=== PATIENT | female | born 1990 | race Caucasian/White ===

== ENCOUNTER → 2018-04-28 16:08 | Outpatient (CLI) | payer BC, SELFPAY ==
[2016-12-02 05:19] VITALS: BMI 29.5
[2018-04-28 18:33] LABS: Absolute Lymphocyte Count 2.78 X10^3/ul (0.83-4.51); Absolute Neutrophil Count 2.1 X10^3/uL (2.0-7.7); Basophil# 0.03 X10^3/uL; Basophil% 0.5 % (0-1); Eosinophils% 5.4 % (0-5); Hematocrit 40.2 % (37-47); Hemoglobin 12.6 g/dl (12.0-15.0); Lymphocyte # 2.78 X10^3/ul (4.0); Lymphocyte % 49.8 % (19-41); Mean Corp Hgb Conc 31.3 g/gl (32-36); Mean Corpuscular Hgb 27.2 pg (27.0-32.0); Mean Corpuscular Volume 86.8 fL (81-99); Mean Platelet Vol. 9.4 fl (6.2-12.0); Monocyte# 0.34 X10^3/uL; Monocyte% 6.1 % (0-10); Neutrophil # 2.13 X10^3/uL (2.7-7.7); Neutrophil % 38.2 % (47-70); Platelet Count 278 K/mm3 (150-450); RBC Distribution Width CV 13.3 % (11.6-14.6); RBC Distribution Width SD 41.9 fl (35.1-43.9); Red Blood Count 4.63 M/mm3 (4.2-5.4); White Blood Count 5.6 K/mm3 (4.4-11.0)
[2018-04-28 18:37] LABS: POSITIVE COUNT NO; POSITIVE DIFFERENTIAL NO; POSITIVE MORPHOLOGY NO
[2018-04-28 19:09] LABS: Thyroid Stim Hormone (TSH) 0.86 uIU/mL (0.358-3.74)
--- OUTSIDE RECORDS SUMMARY | 2018-06-14 23:25 | XMS RPT_ITS ---
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, single Hospital episode, Repository unspecified / F32.9(ICD-10) PROCEDURES PROCEDURES No Procedure Records FoundRESULTS RESULTS CBC W/DIFF, AUTOMATED Collected: 04/28/2018 Status: F Source: OG 4:09 PM [facility] REPOSITORY TYPE CODE TESTS RESULT OUT OF RANGE REFERENCE UNITS LAB L100.1000 4.4-11.0 K/mm3 Normal WBC 5.6 LAB L100.1200 4.2-5.4 M/mm3 Normal RBC 4.63 LAB L100.1300 12.0-15.0 g/dl Normal HGB 12.6 LAB L100.1400 37-47 % Normal HCT 40.2 LAB L100.1500 81-99 fL Normal MCV 86.8 LAB L100.1600 27.0-32.0 pg Normal MCH 27.2 LAB L100.1700 32-36 g/gl Low MCHC 31.3 LAB L100.1810 11.6-14.6 % Normal RDW CV 13.3 LAB L100.1820 35.1-43.9 fl Normal RDW SD 41.9 LAB L100.1900 150-450 K/mm3 Normal PLT 278 LAB L100.2000 6.2-12.0 fl Normal MPV 9.4 LAB L100.2100 47-70 % Low NEUT% 38.2 LAB L100.2200 19-41 % High LY% 49.8 LAB L100.2300 0-10 % Normal MONO% 6.1 LAB L100.2400 0-5 % High EO% 5.4 LAB L100.2500 0-1 % Normal BASO% 0.5 LAB L100.2550 0.0-0.9 % Normal IM GRAN % 0.000 Result Comment: IG% - Immature Granulocytes (promyelocytes, myelocytes and metamyelocytes) > 1% indicates that a LEFT SHIFT is Present. LAB L100.2620 2.0-7.7 X10 3/uL Normal Absolute Neut 2.1 LAB L100.2720 0.83-4.51 X10 3/ul Normal Absolute Lymph 2.78 Performed By: #### L100.0100, L501.9520 #### [facility] [address] [place], [address] THYROID STIM HORMONE Collected: 04/28/2018 Status: F Source: [place] ([facility]) 4:09 PM [facility] REPOSITORY TYPE CODE TESTS RESULT OUT OF RANGE REFERENCE UNITS LAB L501.9520 0.358-3.74 uIU/mL Normal TSH 0.86 Performed By: #### L100.0100, L501.9520 #### [facility] [address] [place], [address] ALLERGIES ALLERGIES DATE TYPE / CODE NAME / CODE REACTION SEVERITY SOURCE 12/02/2016 Drug No Known Unknown [facility] Allergy/4160 Allergies/F00 [facility] [address](SNOMED [id number](RXNOR Repository CT) M) ENCOUNTERS ENCOUNTERS ADMIT/DISCHARGE ACCOUNT ADMITTING ENCOUNTER LOCATION SOURCE NUMBER CLASS 04/28/2018 [id number] Ambulatory [address] ing:MFPLAB Repository PAYERS PAYERS ENCOUNTER GUARANTOR PAYER SUBSCRIBER SOURCE 04/28/2018 Lew Ospina9 Primary Miranda Meier [place] Insurance:ANTHEMPolic BaconDOB: [facility]ly [facility] janette Acevedo y Number: [id number] [address]Ozs: (427) [id number] Repository [phone] (HP) kimberli Date:[id number], [place] [address]KO: 04/28/2018 Secondary NOT GIVENUNK [place] Insurance:SELF PAY [facility]: Effective Repository Date:2018-04-28
== END ==
PROVIDERS: Family Provider Family Medicine; PCP Family Medicine; Visit Provider Family Medicine
DX: F32.9 Major depressive disorder, single episode, unspecified (principal)
CPT/HCPCS: 36415; 84443; 85025

== ENCOUNTER → 2018-07-01 12:10 | Outpatient (CLI) | payer BC, SELFPAY ==
[2016-12-02 05:19] VITALS: BMI 29.5
== END ==
PROVIDERS: Family Provider Family Medicine; PCP Family Medicine; Referring Provider Urology; Visit Provider Urology
DX: R30.0 Dysuria (principal)
CPT/HCPCS: 87077; 87086; 87088; 87186

== ENCOUNTER → 2018-07-10 08:55 | Outpatient (CLI) | payer BC, SELFPAY ==
--- NOTE | 2018-07-10 09:03 | CT_ITS ---
STUDY: CT ABDOMEN AND PELVIS WITH CONTRAST REASON FOR EXAM: Female, 27 years old. Low abdominal pain, prior bladder repair RADIATION DOSAGE (If Supplied By Facility): CTDIvol = ( 8.46 ) mGy, DLP = ( 484.58 ) mGycm TECHNIQUE: Transaxial images were obtained from the lower chest to the upper thighs with oral contrast. 100 ml of Isovue 300 contrast was administered. Sagittal and coronal images were reconstructed. Individualized dose optimization techniques were used for this CT. COMPARISON: April 05, 2015 FINDINGS: Lower chest: Lower lungs: Unremarkable. Pleura: No pleural effusion. Cardiac: Normal size heart. Liver: Normal in appearance. Spleen: Normal in appearance. Gallbladder and biliary system: Normal in appearance. Pancreas: Normal in appearance. Adrenal glands: Normal in appearance. Kidneys and collecting systems: Right: Normal in appearance. No dilatation of collecting system. Left: Normal in appearance. No dilatation of collecting system. Gastrointestinal: Stomach: Normal in appearance. Small bowel: Normal in appearance. Colon: There is marked stool in the colon, most pronounced proximally. Appendix: Normal in appearance. Vessels: Arterial: Unremarkable. Venous: Unremarkable. Retroperitoneum/mesentery: Lymph nodes: Small retroperitoneal and mesenteric nodes. Fluid/free air: None. Pelvis: Bladder: Normal in appearance. Reproductive organs: The uterus is normal in size. The cervix is heterogeneous and enlarged. Follicles in both ovaries. There is a 2.4 cm cystic mass in the left ovary. No pelvic free fluid. Soft tissues: Small umbilical hernia containing fat. Bones: Mild degenerative changes in the low thoracic spine. CT/Abdomen/Pelvis WITH Contrast IMPRESSION: There are no acute bowel abnormalities. There is marked stool in the colon, most pronounced proximally. There is no ascites, free air or significant lymphadenopathy. There are small lymph nodes scattered along the retroperitoneum. The bladder is normal in appearance. There is a 2.4 cm cyst in the left ovary without suspicious features on CT. The cervix is enlarged and heterogeneous. Correlate with clinical exam. Electronically Signed: Saloni Poole MD at 18:08 EST , Service support ,
== END ==
PROVIDERS: Family Provider Family Medicine; PCP Family Medicine; Referring Provider Nurse Practitioner Adult Health; Visit Provider Nurse Practitioner Adult Health
DX: S37.29XS Other injury of bladder, sequela (principal); R39.2 Extrarenal uremia
CPT/HCPCS: 74177; Q9967

== ENCOUNTER 2018-09-11 09:08 | Day surgery (SDC) | payer BC, SELFPAY ==
[2018-09-11] VITALS (8 sets, daily range): BP systolic 108–123; BP diastolic 68–83; PULSE 66–73; RESP 14–18; TEMP 36.6–37.2; O2SAT 96–100; BMI 21.7
[2018-09-11 09:26] LABS: Internal QC Validated? YES +Cl - CLEAR BKGD
[2018-09-11 09:30] LABS: Pregnancy, Urine Negative Negative
[2018-09-11] MEDS: Methylene Blue 1% 100 MG/10 ML VIAL (10:55)
[2018-09-11] MEDS: Cefazolin 2 GM in 0.9% Normal Saline 100 ML IV (10:55)
--- NOTE | 2018-09-11 11:46 | DCINST_ITS ---
Discharge Diet: Light diet - advance as tolerated Discharge Activity: Return to Normal Activity Suture Line Care: Avoid Pulling/Pushing, Avoid Pinching/Bending Allergies/Adverse Reactions: Allergies No Known Allergies Allergy (Verified 09/10/18 10:59) Medications to take at Discharge Fluoxetine HCl [Prozac] 40 mg PO DAILY 09/10/18 Primary Care Physician: Jonan Bingham MD [Primary Care Provider] - Test Results: Test results from this visit will be discussed in further detail at your follow- up appointment, if applicable. Please Follow Up With: Theodore Tanner MD When: in 2 weeks, please call to make an appointment.
--- NOTE | 2018-09-11 11:49 | PCM.OPRPT ---
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 Description of Surgical Findings:: 28-year-old female who underwent a several years ago had a significant bladder injury at that time underwent a complex repair he developed constant incontinence since then very suspicious for a fistula incontinence comes with activity and just on its own in a random fashion after discussing with the patient the options were going to proceed with a cystoscopy bilateral retrograde pyelograms to rule out any involvement of the ureters and will do a methylene blue instillation and fistulogram to identify a fistula between the bladder and the vagina and identify the location. 28-year-old female taken back to the operating room after smooth induction of anesthesia she was placed in dorsolithotomy position, the urethra and vaginal area were prepped and draped in usual sterile fashion, on examination the urethra was normal, performed a cystoscopy had a lot of scar tissue in the trigone area where the prior injury supposedly occurred could identify fortunately the left ureteral orifice and also could identify the right ureteral orifice, did a retrograde pyelogram the left side with nice with contrast all the way to the kidney and good drainage, then did a the retrograde Polygram the right side and could see nice contrast with drainage no evidence of a fistula from the ureters. Inspecting the trigone initially really could not identify anything that looked like a fistula but certainly was not a normal trigone prior repair a lot of bumps and folds along the area of the trigone. I then gently packed the vagina with clear gauze. I then placed a 18 [place] catheter into the bladder and filled the bladder with methylene blue water that was diluted with methylene blue. We let it sit there for about 10 minutes and then I pulled out the gauze from the vaginal vault at the end of the gauze there was methylene blue on the gauze consistent with a fistula. I then went into the vagina performed vaginoscopy and putting pressure on the top of the bladder I could then see methylene blue seeped into the vaginal vault and it looked like it appeared to come from the anterior part of the vaginal vault right above the cervix where there is some pinpoint openings. Really could not identify exactly which openings where the fistula but he could see blue oozing into the vaginal area from the bladder. I then went back into the bladder I drained out the took out the catheter inspected the trigone again and then I found the fold right and the posterior aspect of the trigone in the deep part of the bladder posteriorly that appeared to be a fold that that went into a divot and a dimple that I think appear to be the fistula site where the entry of the fistula from the bladder and the vagina. At this point after confirming the fistula and identified what appeared to be entry site from the bladder to the vagina then I drained the bladder patient anesthetic was reversed I will talk to the patient and discuss her options. Type of Anesthesia:: General Drains: none - Admit VTE Documentation VTE Present on Admission: No VTE Mechan Device Prophylaxis: SCD's
== END 2018-09-11 13:47 | disposition home or self-care (01) ==
LOC: SDC 09:09 → AC 09:10
PROVIDERS: Anesthesiology; Family Provider Family Medicine; PCP Family Medicine; Referring Provider Urology; Visit Provider Urology
PROC: (CPT 74450; principal; 2018-09-11 10:50)
DX: N39.42 Incontinence without sensory awareness (principal); N82.0 Vesicovaginal fistula; F32.9 Major depressive disorder, single episode, unspecified; F41.9 Anxiety disorder, unspecified
CPT/HCPCS: 00940; 20501; 52005; 57452; 76000; 81025; J7120; C1769; J2405

== ENCOUNTER → 2018-09-21 11:47 | Outpatient (CLI) | payer BC, SELFPAY ==
[2018-09-11 09:26] VITALS: BMI 21.7
== END ==
PROVIDERS: Family Provider Family Medicine; PCP Family Medicine; Referring Provider Urology; Visit Provider Urology
DX: R30.0 Dysuria (principal)
CPT/HCPCS: 87086; 87088; 87186

== ENCOUNTER → 2018-09-28 16:54 | Outpatient (CLI) | payer BC, SELFPAY ==
[2018-09-11 09:26] VITALS: BMI 21.7
== END ==
PROVIDERS: Family Provider Family Medicine; PCP Family Medicine; Referring Provider Urology; Visit Provider Urology
DX: N39.42 Incontinence without sensory awareness (principal); R30.0 Dysuria
CPT/HCPCS: 87086; 87088

== ENCOUNTER → 2018-11-17 16:57 | Outpatient (CLI) | payer BC, SELFPAY ==
[2018-11-17 10:54] VITALS: BMI 22.7
== END ==
PROVIDERS: Family Provider Family Medicine; PCP Family Medicine; Referring Provider Urology; Visit Provider Urology
DX: R82.998 Other abnormal findings in urine (principal)
CPT/HCPCS: 87086; 87088; 87186

== ENCOUNTER 2018-11-25 07:49 | Observation (INO) | payer BC, SELFPAY ==
[2018-09-11 09:26] VITALS: BMI 21.7
[2018-11-17 10:54] VITALS: BP 120/72; PULSE 84; RESP 16; TEMP 36.6; O2SAT 98; BMI 22.7
[2018-11-25] VITALS (11 sets, daily range): BP systolic 104–132; BP diastolic 56–88; PULSE 55–97; RESP 16–18; TEMP 36.2–36.8; O2SAT 97–100; BMI 22.2
[2018-11-25 06:29] LABS: Internal QC Validated? YES +Cl - CLEAR BKGD; Pregnancy, Urine Negative Negative
[2018-11-25] MEDS: Ketorolac 15 MG/ML Vial IV ×3 (08:00→20:48)
--- NOTE | 2018-11-25 08:00 | FIST_PTH ---
PATIENT: LEW ZELAYA LOC: MS3 U#:[id number] AGE/SX: 28/F ROOM: MS308 RE11/25/[address]: Dr. Theodore Tanner MD : 1990 BED: 1 DIS: 11/26/2018 SPEC #: [id number] RECD: 11/25/18 16:32 STATUS: ZANDER REQ #: [id number] IVAN: 11/25/18 08:[address]: Theodore Tanner DEPT: SURGICAL PATHOLOGY RECD BY: Josue Monroe ENTERED: 11/26/18 10:53 SP TYPE: Fistula OTHR DR: Dr. Joann Bingham MD Tissues: Vagina, NOS Procedures: Surgery Specimen Level III HEADER OPERATION: Lap robotic repair vesical vaginal fistula, cystoscopy PRE-OP DIAGNOSIS: Urinary genital tract fistula TISSUE SUBMITTED: Fistula tract MICROSCOPIC DIAGNOSIS Fistula tract: Consistent with fistula tract (lined by squamous epithelium) with reactive changes and mild chronic inflammation. SJ:don 11/27/18 MICROSCOPIC DESCRIPTION Slides are reviewed. GROSS DESCRIPTION Received in fixative is one container labeled with the patient's name and designated fistula tract. The specimen consists of a piece of galindo, indurated tissue measuring 2 x 1.5 x 1.5 cm. The specimen is serially sectioned and submitted entirely in one cassette. / CONSUELO:don 11/26/18 TC:5 CPT: 29992
[2018-11-25] MEDS: Cefazolin 2 GM in 0.9% Normal Saline 100 ML IV (08:07)
[2018-11-25] MEDS: Bupivacaine 0.5% PF 10 ML VIAL (11:30)
--- NOTE | 2018-11-25 11:48 | PCM.OPRPT ---
Report of Operation Date of Procedure: 11/25/18 Pre-Operative Diagnosis: Vesicle vaginal fistula Post-Operative Diagnosis: The same Surgery/Procedure Performed:: Laparoscopic robotic assisted repair of vesicovaginal fistula, cystoscopy and bilateral ureteral catheter placement stents. Description of Surgical Findings:: Indication this is a 28-year-old female Who several years ago during a had a complicated bladder injury to the base of the bladder and the posterior aspect the bladder around the trigone area at the time of the procedure this complicated injury was repaired however unfortunately she developed a fistula between the bladder and the vagina. Recently I saw the patient and we performed a methylene blue test which confirmed the fistula between the bladder and the vagina on cystoscopy could see the lip of tissue which appeared to be the fistula site. Today we talked about repair of the fistula site she wants to have it repaired since that she has chronic leakage and chronic incontinence and has to wear heavy depends all the time. This is a chronic fistula will not close on its own. We talked about the repair itself the risk of the repair including bleeding infection injury to critical structures also the possibility of failure to close the fistula and a [id number] of another fistula. 28-year-old female was taken back to the operating room timeout was performed, she underwent a general anesthesia placed in dorsolithotomy position, the vaginal area underwent a vaginal prep, we then prepped the abdomen, Degroot catheter was placed, I then went into the bladder with a 21 [place] rigid cystourethroscope the patient was in stirrups identified the right ureteral orifice and the left ureteral orifice advance a Pollack catheter up the right side and a Pollack catheter of the left side again in the midline he could see a little different the looks like the fistula site. Once the catheters were placed we repositioned the patient for a robotic approach to the abdomen the abdomen was reprepped reprepped to the vaginal area. We then prepped and draped the patient using sterile fashion we then made an incision in the umbilicus advanced into the Veress needle into the peritoneal cavity and inflated the Peritoneal cavity CO2 gas I then placed a 8 mm camera trocar 8 mm right arm trocar a millimeter left arm trocar robotic trochars and then in the suction religious assistant port is an 8 mm air seal port. One site performed this then the robot was docked and we proceeded with dissection initially to see that the uterus was plastered against the posterior aspect of the bladder had the do very tedious dissection to get the uterus off the bladder this was took some time to dissect the uterus off the bladder once the uterus was off the bladder to my satisfaction I was able to dissect laterally on the right and left side of the bladder to the port gamble space which made the dissection easier to identify the space, I then filled the bladder with 300 cc of water we open the bladder in the midline all the way down opening up the bladder nicely we then used a Karel needle to clamshell the bladder open to keep it open secured the inside the bladder immediately when I got inside the bladder could see both the stents going up the right and left ureteral orifice. And then he could see a whole clearly in the midline that was the fistula site I then dissected down to the fistula site and then I went around the fistula site like it down it on the right side and the left side I then dissected down the fistula until I got into the vagina place the sponge in the vagina to keep the air from leaking but we did have a air seal port that kept nice pneumoperitoneum then once I went circumferentially around the fistula site dissected down to the vagina could see the hole where the fistula site was leaking into the vagina and excised the entire fistula tract. I then freed up the wings of the vaginal tissue on the right and left side and then ran the first layer to close the opening in the vagina with 4-0 Vicryl this was run in a continuous fashion in a watertight fashion I then dissected more to loosen up the lateral edges of the bladder and the bladder muscle in order to reapproximate this in the midline over the closed fistulous tract after making sure the wings of the bladder and bladder muscle were free I then ran the first layer of the bladder over the fistula site closing it with a 4-0 Vic[address] ran all the way back towards the bladder coming up so that I connected the 2 edges of the fistula excision site together and then was connecting the opening of the bladder together. I stopped here and then I ran a second layer on top of the first layer this was again fluoroscopy this is to reinforce the closure to bring the mucosa together perfectly was very nice closure after the second layer was done on top of the fistula site then the sutures were tied I then closed the rest of the bladder up with the 2 layers a running of [address] to the top of the bladder the dome where the have been opened up and then I closed the second layer in the peritoneal layer with an 0 Vicryl needle using a CT1 needle once the second layer of the bladder was then closed we then filled the bladder up with 300 cc of water no leakage was seen from the closure inside the abdomen inspected the vaginal area did not see any leakage from the vaginal area and that this point then the removed all the needles sponges and needles were accounted for we undocked the robot we at the epigastric patient's abdomen we removed all the trochars all the trochars were 8 mm ports were none the ports were closed incision with small and then the skin were closed with subarticular stitches we will leave the catheter in place both the right and left Pollick catheters were removed and the cath should go home with a catheter she is being reversed from anesthesia at this current point we will take her back to the PACU she is stable minimal blood loss and appeared to be a very good repair with 2 layers over the fistula site and in 2 layers were open the bladder should in the dictation. Type of Anesthesia:: General Drains: degroot Estimated Blood Loss (mL): 50cc - Admit VTE Documentation VTE Present on Admission: No VTE Mechan Device Prophylaxis: SCD's
[2018-11-25] MEDS: FLUoxetine 20 MG Capsule 40 MG PO (14:29)
[2018-11-25] MEDS: Docusate Sodium 100 MG Capsule PO ×2 (14:29→20:48)
[2018-11-25] MEDS: Cefazolin 1 GM/50 ML BAG IV (16:27)
[2018-11-25] MEDS: 0.9% NaCl Peripheral Flush Adult/Peds IV (20:48)
[2018-11-26] MEDS: Cefazolin 1 GM/50 ML BAG IV (01:09)
[2018-11-26] MEDS: Ketorolac 15 MG/ML Vial IV ×2 (01:09→08:45)
[2018-11-26] MEDS: 0.9% NaCl Peripheral Flush Adult/Peds IV (01:10)
[2018-11-26 01:13] VITALS: BP 105/60; PULSE 77; RESP 15; TEMP 37; O2SAT 98
[2018-11-26 05:01] VITALS: BP 108/63; PULSE 82; RESP 16; TEMP 36.9; O2SAT 99
[2018-11-26 05:26] LABS: Hematocrit 35.7 % (37-47); Hemoglobin 11.3 g/dl (12.0-15.0); Mean Corp Hgb Conc 31.7 g/gl (32-36); Mean Corpuscular Hgb 27.2 pg (27.0-32.0); Mean Corpuscular Volume 85.8 fL (81-99); Mean Platelet Vol. 8.9 fl (6.2-12.0); Platelet Count 216 K/mm3 (150-450); RBC Distribution Width CV 13.2 % (11.6-14.6); RBC Distribution Width SD 40.7 fl (35.1-43.9); Red Blood Count 4.16 M/mm3 (4.2-5.4); White Blood Count 7.4 K/mm3 (4.4-11.0)
[2018-11-26 05:30] LABS: Scan Indicated on CBC? Y/N NO
[2018-11-26 05:41] LABS: Anion Gap 5 (5-15); BUN 7 mg/dL (7-18); BUN/Creat Ratio 9.5 RATIO (10-20); Calcium,Total 8.4 mg/dL (8.5-10.1); Chloride 107 mmol/L (98-107); Creatinine, Serum 0.73 mg/dL (0.55-1.02); EST Glomerular Filtration Rate 99 mL/min (>60); Est Glom Filt Rate - Afr Amer 120 mL/min (>60); Estimated Creatinine Clearance 93.22 ml/min; Glucose 84 mg/dL (74-106); Potassium 3.9 mmol/L (3.5-5.1); Sodium Level 141 mmol/L (136-145)
--- NOTE | 2018-11-26 07:27 | PCM.DC.URO ---
Discharge Diet: Light diet - advance as tolerated Discharge Activity: Return to Normal Activity, May not drive while taking narcotic pain medications., May Shower May shower in (days): 1 May resume sexual activity in: 6 weeks Lifting Restrictions: no thing in vagina for 6 weeks Call your doctor if your incision/area has: Continuous Slow Oozing, Sudden Increased Bleeding, Increased Pain/ Swelling, Increased Redness, Foul Smelling Discharge, Swelling at the incision site Call your doctor if you observe: Inability to have a bowel movement, Uncontrolled pain Suture Line Care: Avoid Pulling/Pushing, Avoid Pinching/Bending Catheter: Ha to leg bag, Ha to large bag Drain: [place] Allergies/Adverse Reactions: Allergies No Known Allergies Allergy (Verified 11/17/18 10:43) Medications to take at Discharge Fluoxetine HCl [Prozac] 40 mg PO DAILY 09/10/18 Ciprofloxacin [Cipro] 500 mg PO DAILY #14 tab 11/26/18 Docusate Sodium [Colace] 100 mg PO BID #20 cap 11/26/18 Hydrocodone/Acetaminophen [[place] 5-325 Tablet] 1 ea PO Q4H PRN PRN 5 Days #14 tab 11/26/18 The following prescriptions were given: Ciprofloxacin [Cipro] 500 mg PO DAILY #14 tab Prescription Printed Docusate Sodium [Colace] 100 mg PO BID #20 cap Prescription Printed Hydrocodone/Acetaminophen [[place] 5-325 Tablet] 1 ea PO Q4H PRN PRN 5 Days #14 tab PRN Reason: Pain Prescription Printed Primary Care Physician: Joann Bingham MD [Primary Care Provider] - Test Results: Test results from this visit will be discussed in further detail at your follow-up appointment, if applicable. Please Follow Up With: Theodore Tanner MD When: in 2 weeks, please call to make an appointment.
[2018-11-26 08:27] VITALS: BP 115/53; PULSE 80; RESP 16; TEMP 37.3; O2SAT 100
[2018-11-26] MEDS: Docusate Sodium 100 MG Capsule PO (10:37)
[2018-11-26] MEDS: FLUoxetine 20 MG Capsule 40 MG PO (10:37)
== END 2018-11-26 11:40 | disposition home or self-care (01) ==
LOC: MS3 11-27 07:22
PROVIDERS: Anesthesiology; Admitting Provider Urology; Family Provider Family Medicine; PCP Family Medicine; Referring Provider Urology; Visit Provider Urology
PROC: 8E0W4CZ Robotic Assisted Procedure of Trunk Region, Percutaneous Endoscopic Approach (ICD-10-PCS; CPT 50544; principal; 2018-11-25 07:30)
PROC: (CPT 51900; 2018-11-25 07:30)
DX: N82.0 Vesicovaginal fistula (principal); F41.9 Anxiety disorder, unspecified; F32.9 Major depressive disorder, single episode, unspecified; Z79.899 Other long term (current) drug therapy
CPT/HCPCS: 00860; 51900; S2900; 36415; 80048; 81025; 85027; 88304; 96365; 96366; 96375; 96376; 99218; J7120; A4216; C1769; G0378; G0379; J2405

== ENCOUNTER 2020-05-19 18:53 | Emergency (ER) | payer SELFPAY ==
[2018-11-25 14:09] VITALS: BMI 22.2
[2020-05-19 18:54] VITALS: BP 148/97; PULSE 74; RESP 16; TEMP 36.1; BMI 26.2
--- NOTE | 2020-05-19 19:09 | ED.VIS.GEN ---
History of Present Illness Chief Complaint: Complaint Informant: Patient Narrative: 29-year-old female presents with concern for urinary tract infection and left flank pain. She tells me for the past week she has had urinary frequency and dysuria. She notes urinating smaller than normal amounts. She states that couple hours prior to arrival she began to have a waxing and waning pain in the left flank. No fevers. The back pain is not positional or made worse with exertion. No radicular component to it. She has a history of frequent UTIs and underwent repair of a bladder/vaginal fistula with Dr. Tanner in the past. In the past week she has not had any medications for this. Past Medical History - Allergies and Home Meds Allergies/Adverse Reactions: Allergies No Known Allergies Allergy (Verified 05/19/20 18:54) Primary Care Physician: Joann Bingham MD [Primary Care Provider] - Past Medical History: None Surgical History: - - Vaginal/bladder fistula repair Lives: With Family Smoking Status: Never smoker Drugs: None Review of Systems General: Denies: Chills, Fever, Sweats Eyes: Denies: Visual changes - bilaterally, Diplopia ENT: Denies: Rhinorrhea, Sore throat Cardiovascular: Denies: Chest pain, Palpitations Respiratory: Denies: Dyspnea, Cough, Dyspnea on exertion Gastrointestinal: Denies: Abdominal pain, Nausea, Vomiting, Diarrhea, Melena, Hematochezia Genitourinary: Reports: Dysuria, Frequency. Denies: Hematuria Musculoskeletal: Reports: Back pain. Denies: Extremity Pain Skin: Denies: Rash, Wounds Neurological: Denies: Headache, Weakness, Numbness Physical Exam Vital Signs/Narrative: Vital Signs Temp Pulse Resp BP 05/19/20 18:54 97.0 F L 74 16 148/97 H Inital Vital Signs reviewed: Yes General: Well nourished, Well developed, No Acute Distress, - - Patient is bent over on the bed Head: Normocephalic, Atraumatic Eyes: Perrl, EOMI ENT: Moist mucous membranes, No rhinorrhea Neck: Supple, Nontender Cardiovascular: Regular rate, Regular rhythm, No murmurs Respiratory: No distress, CTA bilaterally, Chest nontender Abdomen: Soft, Nontender, Nondistended, Normal bowel sounds Back: CVA tenderness - Left Extremities: Nontender, No edema Skin: Normal color, No rash Neurological: Alert, Oriented x3, Cranial nerves II-XII grossly intact, Normal Strength, Normal Sensation Psychological: Normal affect, Normal Mood Diagnostic/Tx/Re-eval Clinical Impression(s) from Imaging Studies Abdomen/Pelvis CT 05/19/20 19:55 IMPRESSION: 1. Marked left-sided hydronephrosis and hydroureter to the urinary bladder without filling defect. 2. Pessary in the vaginal canal. There is projection of the posterior urinary bladder into the upper portion of the pessary. 3. No other evidence of acute intra-abdominal or pelvic process or major interval change. Electronically Signed: Geovani Velasco DO at 20:27 EST Tel [phone], Service support , Laboratory Last Values Urine Color Yellow (Yellow) 05/19/20 19:15 Urine Clarity Cloudy (Clear) 05/19/20 19:15 Urine pH 6.5 (5.0 - 8.0) 05/19/20 19:15 Ur Specific [place] 1.010 (1.002-1.030) 05/19/20 19:15 Urine Protein Negative mg/dl (Negative) 05/19/20 19:15 Urine Glucose (UA) Normal mg/dl (Normal) 05/19/20 19:15 Urine Ketones Negative mg/dl (Negative) 05/19/20 19:15 Urine Occult Blood 150 /ul (Negative) H 05/19/20 19:15 Urine Nitrite Positive (Negative) H 05/19/20 19:15 Urine Bilirubin Negative mg/dL (Negative) 05/19/20 19:15 Urine Urobilinogen Normal mg/dl (Normal) 05/19/20 19:15 Ur Leukocyte Esterase 25 /ul (Negative) H 05/19/20 19:15 Urine RBC 0-5 SEEN /hpf (0-5) 05/19/20 19:15 Urine WBC 5-10 SEEN /hpf (0-5) 05/19/20 19:15 Ur Squamous Epith Cells 0-5 SEEN /hpf (5-10) 05/19/20 19:15 Amorphous Sediment 2+ 05/19/20 19:15 Urine Bacteria 0 SEEN /hpf (None Seen) 05/19/20 19:15 Urine Mucus 0 SEEN /hpf (<or=2+) 05/19/20 19:15 Urine Test Negative Negative 05/19/20 19:15 - Medical Decision Making Urine will be sent for culture. I will write for Cipro. The urine was not as significantly impressive as I was expecting. Therefore a CT flank was ordered which demonstrates marked hydronephrosis. Patient got good improvement with her pain with Toradol. I will write for Cipro Zofran and Toradol for home use. I recommend that she follow-up with urology as soon as possible. ED Disposition - Plan for ED Patient: Disposition: Home or Assisted Living Diagnosis: UTI (urinary tract infection), Hydronephrosis, Renal colic on left side Instructions: ED Bladder Infection, Female (Adult) Prescriptions: Ciprofloxacin [Cipro] 500 mg PO BID #10 tab Prescription Printed Ketorolac [Toradol] 10 mg PO Q8H 4 Days #12 tab Prescription Printed Ondansetron [Zofran Odt] 4 mg PO Q6H PRN PRN #14 tab PRN Reason: Nausea Prescription Printed Referrals: Theodore Tanner MD [STAFF PHYSICIAN] - As soon as possible
[2020-05-19] MEDS: Ketorolac 60 MG/2 ML Vial IM (19:17)
[2020-05-19 19:22] VITALS: BP 148/97; PULSE 74; RESP 16; TEMP 36.1
[2020-05-19 19:24] LABS: Mucous, Urine 0 SEEN /hpf (<or=2+)
[2020-05-19] MEDS: Ondansetron ODT 4 MG Tablet PO (19:25)
[2020-05-19 19:30] LABS: Internal QC Validated? YES +Cl - CLEAR BKGD
[2020-05-19 19:31] LABS: Color, Urine Yellow (Yellow); Glucose, Dipstick Normal (Normal); Ketone-Dipstick Negative (Negative); Leukocyte Esterase-Dipstick 25 /ul (Negative); Nitrite-Dipstick Positive (Negative); Occult Blood-Urine 150 /ul (Negative); Protein-Dipstick Negative (Negative); Urine Bilirubin Dipstick Negative (Negative); Urine Clarity Cloudy (Clear); Urine Urobilinogen Normal (Normal); Urine pH 6.5 (5.0 - 8.0)
[2020-05-19 19:32] LABS: Pregnancy, Urine Negative Negative
[2020-05-19 19:39] LABS: Squamous Epithelial Cells - UA 0-5 SEEN /hpf (5-10)
[2020-05-19 19:42] LABS: Red Blood Cells-Urine 0-5 SEEN /hpf (0-5); White Blood Cells 5-10 SEEN /hpf (0-5)
[2020-05-19 19:43] LABS: Amorphous Sediment 2+; Bacteria 0 SEEN /hpf (None Seen)
--- NOTE | 2020-05-19 19:55 | CT_ITS ---
STUDY: CT ABDOMEN AND PELVIS WITHOUT CONTRAST REASON FOR EXAM: Female, 29 years old. Left flank pain beginning today. Treated for UTI times one week. History of bladder fistula repair. RADIATION DOSAGE (If Supplied By Facility): CTDIvol = ( 7.02 ) mGy, DLP = ( 331.44 ) mGycm TECHNIQUE: Transaxial images were obtained from the dome of the diaphragm to the symphysis pubis without oral contrast, and without intravenous contrast. Sagittal and coronal images were reconstructed. Individualized dose optimization techniques were used for this CT. COMPARISON: 07/10/2018. FINDINGS: The visualized lung bases are unremarkable. The visualized portions of the heart are within normal limits. Normal liver. Normal gallbladder and extrahepatic biliary system. Normal spleen. Normal pancreas. Normal bilateral adrenal glands. Normal right kidney. Normal right ureter. The left kidney is of normal size and contour. There is marked hydronephrosis and ureterectasis to the urinary bladder without opaque filling defect. Normal visualized stomach. Normal small intestine. Normal colon. The appendix is visualized and appears normal. Normal abdominal aorta. Normal inferior vena cava. Normal retroperitoneum. Normal urinary bladder. Unremarkable uterus and adnexa. There is a pessary in the vaginal canal. There is projection of the posterior urinary bladder into the vaginal vault and upper aspect of a pessary. There is no pelvic lymphadenopathy. No free air or free fluid is seen within the peritoneal cavity. Normal abdominal wall. Normal osseous structures. CT/Abdomen/Pelvis without Cont IMPRESSION: 1. Marked left-sided hydronephrosis and hydroureter to the urinary bladder without filling defect. 2. Pessary in the vaginal canal. There is projection of the posterior urinary bladder into the upper portion of the pessary. 3. No other evidence of acute intra-abdominal or pelvic process or major interval change. Electronically Signed: Geovani Velasco DO at 20:27 EST Tel [phone], Service support ,
[2020-05-19 20:58] VITALS: BP 137/74; BP 148/97; PULSE 74; RESP 16; TEMP 36.1; O2SAT 100
== END 2020-05-19 20:59 | disposition home or self-care (01) ==
PROVIDERS: Emergency Provider Emergency Medicine; PCP Family Medicine
DX: N39.0 Urinary tract infection, site not specified (principal); N23 Unspecified renal colic; N13.30 Unspecified hydronephrosis; Z87.440 Personal history of urinary (tract) infections
CPT/HCPCS: 74176; 81001; 81025; 96372; 99283

== ENCOUNTER → 2022-05-27 | Outpatient (CLI) | payer MEDICAID, SELFPAY ==
[2022-05-27 17:57] LABS: Absolute Lymphocyte Count 3.33 X10^3/uL (0.83-4.51); Absolute Neutrophil Count 2.3 X10^3/uL (2.0-7.7); Basophil# 0.04 X10^3/uL; Basophil% 0.6 % (0-1); Eosinophil# 0.24 X10^3/uL; Eosinophils% 3.8 % (0-5); Hemoglobin 12.7 g/dL (12.0-15.0); Lymphocyte # 3.33 X10^3/ul (0.83-4.51); Mean Corp Hgb Conc 31.8 g/dL (32-36); Mean Corpuscular Hgb 27.7 pg (27.0-32.0); Mean Corpuscular Volume 87.3 fL (81-99); Mean Platelet Vol. 8.7 fl (6.2-12.0); Monocyte# 0.43 X10^3/uL; Monocyte% 6.7 % (0-10); NRBC Flagged by Analyzer 0 % (0-5); Neutrophil # 2.34 X10^3/uL (2.7-7.7); Neutrophil % 36.6 % (47-70); Platelet Count 389 K/mm3 (150-450); RBC Distribution Width CV 13.6 % (11.6-14.6); RBC Distribution Width SD 43.8 fl (35.1-43.9); Red Blood Count 4.58 M/mm3 (4.2-5.4); White Blood Count 6.4 K/mm3 (4.4-11.0)
[2022-05-27 18:07] LABS: Internal QC Validated? YES +Cl - CLEAR BKGD; Pregnancy, Serum, hCG Quali. NEGATIVE Negative
[2022-05-27 18:37] LABS: AST(SGOT) 14 U/L (15-37); Alanine Aminotransfer ALT/SGPT 21 U/L (13-56); Alkaline Phosphatase 49 U/L (45-117); Anion Gap 9 (5-15); BUN 12 mg/dL (7-18); BUN/Creat Ratio 17.6 RATIO (10-20); Chloride 103 mmol/L (98-107); Creatinine, Serum 0.68 mg/dL (0.55-1.02); EST Glomerular Filtration Rate 105 mL/min (>60); Est Glom Filt Rate - Afr Amer 127 mL/min (>60); Globulin 3.9 g/dL (2.2-4.2); Glucose 88 mg/dL (74-106); Potassium 4.1 mmol/L (3.5-5.1); Protein, Total 7.9 g/dL (6.4-8.2); Sodium Level 138 mmol/L (136-145); Thyroid Stim Hormone (TSH) 1.94 uIU/mL (0.358-3.74)
[2022-05-27 19:03] LABS: Erythrocyte Sedimentation Rate 16 mm/hr (0-30)
== END | disposition home or self-care (01) ==
LOC: MFPLAB 17:04
PROVIDERS: PCP Family Medicine; Referring Provider Family Medicine; Visit Provider Family Medicine
DX: R35.0 Frequency of micturition (principal); R35.81 Nocturnal polyuria
CPT/HCPCS: 36415; 80053; 84443; 84703; 85025; 85652; 87077; 87086; 87088; 87186

== ENCOUNTER → 2022-06-27 | Outpatient (CLI) | payer MEDICAID, SELFPAY ==
[2022-06-27 15:51] LABS: Bacteria 0 SEEN /hpf (None Seen); Mucous, Urine 0 SEEN /hpf (<or=2+); Red Blood Cells-Urine 0 SEEN /hpf (0-5)
[2022-06-27 16:35] LABS: Color, Urine Yellow (Yellow); Glucose, Dipstick Normal (Normal); Ketone-Dipstick Negative (Negative); Leukocyte Esterase-Dipstick 25 /ul (Negative); Nitrite-Dipstick Negative (Negative); Occult Blood-Urine Negative /ul (Negative); Protein-Dipstick Negative (Negative); Specific Gravity, Urine 1.015 (1.002-1.030); Urine Bilirubin Dipstick Negative (Negative); Urine Clarity Clear (Clear); Urine Urobilinogen Normal (Normal)
[2022-06-27 16:46] LABS: Squamous Epithelial Cells - UA 0-5 SEEN /hpf (5-10); White Blood Cells 5-10 SEEN /hpf (0-5)
== END | disposition home or self-care (01) ==
LOC: LABSPEC 15:13
PROVIDERS: PCP Family Medicine; Visit Provider Nurse Practitioner Family
DX: N39.0 Urinary tract infection, site not specified (principal)
CPT/HCPCS: 81001; 87086; 87088